=== PATIENT | male | born 2000 | race Two or more races ===

== ENCOUNTER 2025-04-19 00:22 | Emergency (ER) | payer MEDICAID, OTHER ==
[~2025-04-19] VITALS: Ht 182.9 cm; Wt 74.8 kg
[2025-04-19] MEDS ORDERED: TETRAcaine 5 ML BOTTLE ONE (01:02)
[2025-04-19] MEDS ORDERED: FLUORESCEIN SODIUM OPHTH 1 EA STRIP ONE (01:02)
[2025-04-19] MEDS: FLUORESCEIN SODIUM OPHTH 1 EA STRIP OP ONE (01:41)
[2025-04-19] MEDS: TETRACAINE HCL 2% OPHTHALIC 30 ML BOTTLE RIGHTEYE ONE (01:41)
[2025-04-19] MEDS ORDERED: TOBR5DRO36 RIGHTEYE (01:45)
[2025-04-19 01:51] VITALS: BP 125/81; TEMP 98.2; O2SAT 100
== END 2025-04-19 02:27 | disposition home or self-care (01) ==
LOC: ER 00:53
DX: T15.91XA Foreign body on external eye, part unspecified, right eye, initial encounter (principal); W44.9XXA Unspecified foreign body entering into or through a natural orifice, initial encounter; Y93.89 Activity, other specified; Y92.89 Other specified places as the place of occurrence of the external cause; Y99.9 Unspecified external cause status